=== PATIENT | male | born 1985 | race Caucasian/White ===

== ENCOUNTER 2018-01-05 22:50 | Emergency (ER) | payer SELFPAY, OTHER | END 2018-01-06 02:46 | disposition left against medical advice (07) | LOC: E/R 22:50 | DX: Z53.21 Procedure and treatment not carried out due to patient leaving prior to being seen by health care provider (principal) ==

== ENCOUNTER 2019-02-20 10:35 | Emergency (ER) | payer SELFPAY, OTHER | END 2019-02-20 15:03 | disposition home or self-care (01) | LOC: FTE 10:35 | DX: H60.01 Abscess of right external ear (principal); F17.210 Nicotine dependence, cigarettes, uncomplicated | CPT/HCPCS: 99283 ==